=== PATIENT | female | born 1960 | race Caucasian/White ===

== ENCOUNTER 2018-04-04 08:53 | Emergency (ER) | payer BC ==
[~2018-04-04] VITALS: Ht 162.6 cm; Wt 79.5 kg
[2018-04-04 09:12] VITALS: Ht 162.6 cm; Wt 79.5 kg
[2018-04-04] MEDS ORDERED: ZOCOR40 MG PO (09:15)
[2018-04-04] MEDS ORDERED: LASIX20 MG PO (09:16)
[2018-04-04] MEDS ORDERED: LEVOXYL50 MCG PO (09:16)
[2018-04-04 10:41] LABS: BASOPHILS 0.3 % (0-2); EOSINOPHILS 0.7 % (0-7); HEMATOCRIT 40.6 % (36.0-48.0); HEMOGLOBIN 13.6 g/dL (12-16); IMMATURE GRANULOCYTES 0.3 % (0-5); LYMPHOCYTES 15.3 % (15-50); MCH 33.3 pg (26.0-34.0); MCHC 33.5 g/dL (31.0-37.0); MCV 99.5 fL (80.0-100.0); MEAN PLATELET VOLUME 9.4 fL (7.4-10.4); MONOCYTES 4.8 % (2-11); NEUTROPHILS 78.6 % (40-80); RBC 4.08 10x6/uL (4.00-5.40); RDW 13.6 % (11.5-14.5); WBC 14.9 10x3/uL (4.8-10.8)
[2018-04-04 10:55] LABS: ALBUMIN 3.4 g/dL (3.4-5.0); ALKALINE PHOSPHATASE 66 U/L (46-116); ALT (SGPT) 12 U/L (10-68); CALC OSMOLALITY 278 mosm/kg (275-300); CALCIUM 8.7 mg/dL (8.5-10.1); CARBON DIOXIDE 31.7 mmol/L (21.0-32.0); CHLORIDE - SERUM 104 mmol/L (98-107); CREATININE - SERUM 0.8 mg/dL (0.6-1.3); GLUCOSE 105 mg/dL (74-106); PLATELET COUNT 239 10x3/uL (130-400); POTASSIUM - SERUM 3.2 mmol/L (3.5-5.1); SODIUM 141 mmol/L (136-145); UREA NITROGEN 6 mg/dL (7-18); eGFR NON AFRICAN AMERICAN 78 mL/min (90-120)
[2018-04-04 10:59] LABS: TROPONIN-I < 0.017 ng/mL (0.000-0.060)
[2018-04-04] MEDS ORDERED: AMOXICILLIN875 MG PO (11:27)
[2018-04-04] MEDS ORDERED: ZITHROMAX500 MG PO (11:27)
[2018-04-04 11:59] LABS: UDS - AMPHET NEGATIVE QUAL (NEGATIVE); UDS - BARB NEGATIVE QUAL (NEGATIVE); UDS - BENZO NEGATIVE QUAL (NEGATIVE); UDS - COCAINE NEGATIVE QUAL (NEGATIVE); UDS - OPIATE POSITIVE QUAL (NEGATIVE); UDS - PCP NEGATIVE QUAL (NEGATIVE); UDS - THC NEGATIVE QUAL (NEGATIVE)
[2018-04-04 12:06] VITALS: BP 118/72
[2018-04-04 12:21] LABS: APPEARANCE HAZY (CLEAR); BACTERIA MODERATE /hpf (NONE SEEN); BILIRUBIN NEGATIVE (NEGATIVE); COLOR YELLOW (YELLOW); GLUCOSE NEGATIVE (NEGATIVE); KETONE SMALL mg/dL (NEGATIVE); MUCUS <1+ /lpf (NONE SEEN); NITRITE NEGATIVE (NEGATIVE); PROTEIN NEGATIVE (NEGATIVE); SPECIFIC GRAVITY 1.005 (1.005-1.020); UROBILINOGEN NORMAL (NORMAL); WHITE CELLS - URINE 0-5 /hpf (0-5)
== END 2018-04-04 12:07 | disposition home or self-care (01) ==
LOC: D.ER 08:53
PROVIDERS: Family Medicine
DX: J18.9 Pneumonia, unspecified organism (principal); J44.9 Chronic obstructive pulmonary disease, unspecified

== ENCOUNTER 2018-04-11 07:44 | Emergency (ER) | payer BC ==
[~2018-04-11] VITALS: Ht 162.6 cm; Wt 80.9 kg
[~2018-04-11 07:44] MED LIST: AMOXICILLIN875 MG PO; LASIX20 MG PO; LEVOXYL50 MCG PO; ZITHROMAX500 MG PO; ZOCOR40 MG PO
[2018-04-11 07:48] VITALS: Ht 162.6 cm; Wt 80.9 kg
[2018-04-11] MEDS ORDERED: MECLIZINE HCL25 MG PO (07:51)
[2018-04-11 08:09] LABS: APPEARANCE CLEAR (CLEAR); BILIRUBIN NEGATIVE (NEGATIVE); COLOR STRAW (YELLOW); GLUCOSE NEGATIVE (NEGATIVE); KETONE NEGATIVE (NEGATIVE); NITRITE NEGATIVE (NEGATIVE); PROTEIN NEGATIVE (NEGATIVE); SPECIFIC GRAVITY 1.005 (1.005-1.020); UROBILINOGEN NORMAL (NORMAL)
[2018-04-11] MEDS ORDERED: NORCO 7.5/325 T1 TA1 PO (10:41)
[2018-04-11] MEDS ORDERED: CYCLOBENZAPRINE10 MG PO (10:41)
[2018-04-11 10:53] VITALS: BP 123/85
== END 2018-04-11 10:56 | disposition home or self-care (01) ==
LOC: D.ER 07:44
PROVIDERS: Family Medicine
DX: M54.31 Sciatica, right side (principal)

== ENCOUNTER 2018-12-04 22:16 | Inpatient (IN) | payer BC ==
[~2018-12-04] VITALS: Ht 162.6 cm; Wt 77.1 kg
[2018-12-04 22:16] VITALS: BP 153/91
[~2018-12-04 22:16] MED LIST changes: +CYCLOBENZAPRINE10 MG PO; +MECLIZINE HCL25 MG PO; +NORCO 7.5/325 T1 TA1 PO
[2018-12-04 23:08] LABS: BASOPHILS 0.5 % (0-2); EOSINOPHILS 4.9 % (0-7); HEMATOCRIT 43.7 % (36.0-48.0); HEMOGLOBIN 14.8 g/dL (12-16); IMMATURE GRANULOCYTES 0.3 % (0-5); LYMPHOCYTES 28.3 % (15-50); MCH 32.4 pg (26.0-34.0); MCHC 33.9 g/dL (31.0-37.0); MCV 95.6 fL (80.0-100.0); MEAN PLATELET VOLUME 9.3 fL (7.4-10.4); MONOCYTES 4.8 % (2-11); NEUTROPHILS 61.2 % (40-80); PLATELET COUNT 283 10x3/uL (130-400); RBC 4.57 10x6/uL (4.00-5.40); RDW 13.4 % (11.5-14.5); WBC 14.9 10x3/uL (4.8-10.8)
[2018-12-04 23:15] LABS: APTT 28.9 SECONDS (22.8-39.4); INR 0.94 (0.85-1.17); PROTIME 12.1 SECONDS (11.6-15.0)
[2018-12-04 23:20] LABS: ALKALINE PHOSPHATASE 71 U/L (46-116); ALT (SGPT) 31 U/L (10-68); BILIRUBIN - TOTAL 0.51 mg/dL (0.2-1.3); CALC OSMOLALITY 292 mosm/kg (275-300); CALCIUM 8.8 mg/dL (8.5-10.1); CARBON DIOXIDE 28.2 mmol/L (21.0-32.0); CHLORIDE - SERUM 105 mmol/L (98-107); CREATININE - SERUM 0.7 mg/dL (0.6-1.3); GLUCOSE 114 mg/dL (74-106); POTASSIUM - SERUM 3.8 mmol/L (3.5-5.1); PROTEIN - SERUM 7.4 g/dL (6.4-8.2); SODIUM 146 mmol/L (136-145); UREA NITROGEN 14 mg/dL (7-18); eGFR NON AFRICAN AMERICAN > 90 mL/min (90-120)
[2018-12-04 23:31] LABS: CKMB 0.8 U/L (0.0-3.6); CREATINE KINASE 67 UL (21-215); PRO BNP 62 pg/mL (0-125); TROPONIN-I < 0.017 ng/mL (0.000-0.060)
[2018-12-04 23:41] VITALS: BP 144/92
[2018-12-05] VITALS (7 sets, daily range): BP systolic 95–125; BP diastolic 39–68; Ht 162.6 cm; Wt 77.1 kg
--- NOTE | 2018-12-05 00:28 | NUR ---
ARRIVED ON FLOOR VIA WC. SELF AMBULATED TO BED. ORIENTED TO ROOM AND CALL LIGHT. IV TO LEFT HAND INFUSING ABX. ASSESSMENT AND HISTORY PER FLOW SHEET. O2 AT 3L VIA NC.
[2018-12-05] MEDS ORDERED: CLARITIN 10 MG10 MG PO (00:38)
--- NOTE | 2018-12-05 06:53 | NUR ---
I have reviewed this patient and I concur with the Shift Assessment completed by the Licensed Practical Nurse today this shift.
--- NOTE | 2018-12-05 08:09 | NUR ---
AWAKE AND ALERT. NO C/O AT THIS TIME. LUNGS HAVE ADVANTAGOUS SOUNDS THROUGHOUT BUT INSPIRATORY WHEEZES NOTED TO LEFT LOBES, OCCASSIONALLY PRODUCTIVE COUGH NOTED WITH REPORTED YELLOW SPUTUM. SKIN IS INTACT WITHOUT REDNESS. SL TO LEFT FOREARM IS PATENT WITHOUT REDNESS AT INSERTION SITE.
--- NOTE | 2018-12-05 09:00 | NUR ---
ATE MOST OF BREAKFAST. PATIENT IS UP AD HAILEY. DENIES NEEDS.
--- NOTE | 2018-12-05 09:57 | NUR ---
PATIENT IS UP AD HAILEY AND REFUSED SCD'S.
[2018-12-05 10:10] LABS: BASOPHILS 0.1 % (0-2); EOSINOPHILS 0.1 % (0-7); HEMATOCRIT 42.8 % (36.0-48.0); HEMOGLOBIN 14.4 g/dL (12-16); IMMATURE GRANULOCYTES 0.4 % (0-5); LYMPHOCYTES 9.6 % (15-50); MCH 32.3 pg (26.0-34.0); MCHC 33.6 g/dL (31.0-37.0); MEAN PLATELET VOLUME 9.9 fL (7.4-10.4); MONOCYTES 0.5 % (2-11); NEUTROPHILS 89.3 % (40-80); PLATELET COUNT 288 10x3/uL (130-400); RBC 4.46 10x6/uL (4.00-5.40); RDW 13.6 % (11.5-14.5)
[2018-12-05 10:21] LABS: WBC 7.8 10x3/uL (4.8-10.8)
[2018-12-05 10:28] LABS: ANION GAP 18.2 mmol/L (8-16); CALCIUM 9.1 mg/dL (8.5-10.1); CARBON DIOXIDE 23.7 mmol/L (21.0-32.0); POTASSIUM - SERUM 3.9 mmol/L (3.5-5.1)
--- NOTE | 2018-12-05 13:00 | NUR ---
ATE MOST OF LUNCH. DENIES NEEDS. VISITOR AT BEDSIDE.
--- NOTE | 2018-12-05 18:44 | NUR ---
SITTING UP IN BED EATING SUPPER. VISITOR AT BEDSIDE. DENIES NEEDS. NO CHANGES NOTED.
--- NOTE | 2018-12-06 02:00 | NUR ---
1930) REC'D. IN BED EYES CLOSED RESP. DEEP AND EVEN LYING ON RIGHT SIDE NO OBSERVANCE OF ANY RESP. DIFFICULTY AT PRESENT TIME. WILL CONTINUE TO MONITO FOR ANY CHGES. AND FOLLOW CURRENT PLAN OF CARE
--- NOTE | 2018-12-06 04:15 | NUR ---
I have reviewed this patient and I concur with the Shift Assessment completed by the Licensed Practical Nurse today this shift.
[2018-12-06 04:42] LABS: BASOPHILS 0 % (0-2); EOSINOPHILS 0 % (0-7); HEMATOCRIT 37.9 % (36.0-48.0); HEMOGLOBIN 12.5 g/dL (12-16); IMMATURE GRANULOCYTES 0.3 % (0-5); LYMPHOCYTES 8.8 % (15-50); MCH 31.6 pg (26.0-34.0); MCV 95.7 fL (80.0-100.0); MEAN PLATELET VOLUME 9.6 fL (7.4-10.4); MONOCYTES 2.3 % (2-11); NEUTROPHILS 88.6 % (40-80); PLATELET COUNT 265 10x3/uL (130-400); RBC 3.96 10x6/uL (4.00-5.40); RDW 13.7 % (11.5-14.5)
[2018-12-06 04:53] LABS: CALC OSMOLALITY 285 mosm/kg (275-300); CALCIUM 8.6 mg/dL (8.5-10.1); CARBON DIOXIDE 24.1 mmol/L (21.0-32.0); CHLORIDE - SERUM 107 mmol/L (98-107); CREATININE - SERUM 0.8 mg/dL (0.6-1.3); MAGNESIUM - SERUM 1.9 mg/dL (1.8-2.4); PHOSPHOROUS 3.3 mg/dL (2.5-4.9); POTASSIUM - SERUM 4.3 mmol/L (3.5-5.1); SODIUM 141 mmol/L (136-145); UREA NITROGEN 16 mg/dL (7-18); eGFR NON AFRICAN AMERICAN 78 mL/min (90-120)
[2018-12-06 04:57] LABS: GLUCOSE 166 mg/dL (74-106)
[2018-12-06 05:51] VITALS: BP 101/44
--- NOTE | 2018-12-06 08:06 | NUR ---
AWAKE AND ALERT. ORIENTED X3. NO C/O AT THIS TIME. LUNGS ARE MOSTLY CLEAR WITH GOOD AIRFLOW TODAY FAINT CRACKLES NOTED TO LOWER LOBES, OCCASSIONAL NON PRODUCTIVE COUGH NOTED. SKIN IS INTACT WITHOUT REDNESS. SL TO LEFT HAND IS PATETN WTIHOUT REDNESS AT INSERTION SITE. DENIES NEEDS.
--- NOTE | 2018-12-06 09:30 | NUR ---
ATE MOST OF BREAKFAST. UP IN ROOM CHANGING LINENS ON BED. STATED SHE NEEDED SOMETHING TO DO. DENIES NEEDS.
[2018-12-06 09:46] VITALS: BP 111/60
--- NOTE | 2018-12-06 12:30 | NUR ---
LUNCH SERVED IN ROOM.
--- NOTE | 2018-12-06 13:40 | NUR ---
RETURNED FROM SURGERY. A/O X3. DRESSING TO LEFT ANKLE DRY AND INTACT. FAMILY IN ROOM.
--- NOTE | 2018-12-06 14:13 | NUR ---
ECHO IN PROGRESS AT THIS TIME.
[2018-12-06 15:10] VITALS: BP 113/57
--- NOTE | 2018-12-06 16:36 | MORECARE ---
CASE MANAGEMENT DISCHARGE SUMMARY PATIENT: HANY BRIAN UNIT: [id number] ADM DATE: 12/04/18 AGE: 58 : 60 SEX: F ROOM/BED: D.2208 AUTHOR: LEA MCMULLEN PHYSICIAN: REFERRING PHYSICIAN: VIC SOTO MD DATE OF SERVICE: 12/06/18 Discharge Plan Patient Name: HANY BRIAN [facility] [facility] 1960 Planned Disposition: Home Anticipated Discharge Date: Discharge Date: Expected LOS: Initial Reviewer: [email or web address] Initial Review Date: 12/05/2018 Generated: 12/06/18 5:36 pm DCPIA - Discharge Planning Initial Assessment Updated by [email or web address]: Alison Mcclure on 12/06/18 4:35 pm * Is the patient Alert and Oriented? Yes * How many steps to enter\exit or inside your home? * PCP KAUFMAN * Pharmacy [facility] * Preadmission Environment Home with Family * ADLs Independent * Equipment Nebulizer * List name and contact numbers for known caregivers / representatives who currently or will assist patient after discharge: TONYA (SISTER) AMEYA BARRERA (BOYFRIEND) [phone] * Verbal permission to speak to the caregivers and representatives has been obtained from the patient. N/A * Community resources currently utilized None * Additional services required to return to the preadmission environment? Yes * Can the patient safely return to the preadmission environment? Yes * Has this patient been hospitalized within the prior 30 days at any hospital? No Patient Name: HANY BRIAN Page [id number] at 1636 All edits/amendments must be made on the electronic document DICTATION DATE: 12/06/18 1636 TAGMAN: LEO 12/06/18 1636 RPT#: [id number] DC DATE: STATUS: ADM IN [facility] [address] [place] [address] END OF REPORT
--- NOTE | 2018-12-06 16:44 | MORECARE ---
CASE MANAGEMENT DISCHARGE SUMMARY PATIENT: HANY BRIAN UNIT: [id number] ADM DATE: 12/04/18 AGE: 58 : 60 SEX: F ROOM/BED: D.2209 AUTHOR: BENEDICT,DOC PHYSICIAN: REFERRING PHYSICIAN: VIC SOTO MD DATE OF SERVICE: 12/06/18 Discharge Plan Patient Name: HANY BRIAN Facility: [facility]:[place] : 1960 Planned Disposition: Home Anticipated Discharge Date: Discharge Date: Expected LOS: Initial Reviewer: [email or web address] Initial Review Date: 12/05/2018 Generated: 12/06/18 5:44 pm Comments DCP- Discharge Planning Updated by [email or web address]: Alison Mcclure on 12/06/18 3:[address] Patient Name: HANY BRIAN Admission Status: ER Accout number: [id number] Admission Date: 12-04-2018 : 1960 Admission Diagnosis:SHORTNESS OF BREATH Attending: VIC SOTO Current LOS: 2 Anticipated DC Date: Planned Disposition: Home Primary Insurance: [employer] OUT OF STATE Discharge Planning Comments: CM met with patient to complete initial dc planning assessment. CM educated patient on the CM role and verbal consent given by patient to complete assessment. Patient lives at home with her mother and sister where she states she is independent with her care. At discharge patient plans to return home and feels this is a safe discharge. She is currently using her mothers nebulizer machine that is brand new from [facility], but she needs a new hose and mouth piece. I will try to get a jay for her. CM discussed availability of home health, rehab services, and medical equipment. Patient denied known discharge needs at this time. At discharge her sister, Gisella will be the one to drive her home. CM will continue to follow and will assist as needed with dc plans/needs. Ehs Teacher: Alison Mcclure DCPIA - Discharge Planning Initial Assessment Updated by [email or web address]: Alison Mcclure on 12/06/18 4:35 pm * Is the patient Alert and Oriented? Yes * How many steps to enter\exit or inside your home? * PCP KAUFMAN * Pharmacy [facility] [address] * Preadmission Environment Home with Family * ADLs Independent * Equipment Nebulizer * List name and contact numbers for known caregivers / representatives who currently or will assist patient after discharge: GISELLA (SISTER) AMEYA BARRERA (BOYFRIEND) [phone] * Verbal permission to speak to the caregivers and representatives has been obtained from the patient. N/A * Community resources currently utilized None * Additional services required to return to the preadmission environment? Yes * Can the patient safely return to the preadmission environment? Yes * Has this patient been hospitalized within the prior 30 days at any hospital? No Last DP export: 12/06/18 3:36 p Patient Name: HANY BRIAN Page [phone] at 1644 All edits/amendments must be made on the electronic document DICTATION DATE: 12/06/181643 DIRECTOR OF HOME CARE HOSPICE: LEO 12/06/181643 RPT#: [id number] DC DATE: STATUS: ADM IN [facility] [address] [place] [address] END OF REPORT
[2018-12-06 17:24] VITALS: BP 117/64
[2018-12-06 21:37] VITALS: BP 90/48
[2018-12-07 01:33] VITALS: BP 101/54
--- NOTE | 2018-12-07 02:24 | NUR ---
REC'D. CHGE OF SHIFT IN BED EYES CLOSED REP. DEEP AND EVEN.WILL CONTINUE TO MONITOR FOR ANY CHGES. IN RESP. STATUS AND FOLLOW CURRENT PLAN OF CARE.
[2018-12-07 04:17] LABS: BASOPHILS 0 % (0-2); EOSINOPHILS 0.1 % (0-7); HEMATOCRIT 36.6 % (36.0-48.0); HEMOGLOBIN 11.9 g/dL (12-16); IMMATURE GRANULOCYTES 0.7 % (0-5); LYMPHOCYTES 8.4 % (15-50); MCH 31.4 pg (26.0-34.0); MCHC 32.5 g/dL (31.0-37.0); MCV 96.6 fL (80.0-100.0); MEAN PLATELET VOLUME 9.7 fL (7.4-10.4); MONOCYTES 2.8 % (2-11); PLATELET COUNT 243 10x3/uL (130-400); RBC 3.79 10x6/uL (4.00-5.40); RDW 14.4 % (11.5-14.5); WBC 18.1 10x3/uL (4.8-10.8)
[2018-12-07 04:26] LABS: CALC OSMOLALITY 284 mosm/kg (275-300); CALCIUM 8.3 mg/dL (8.5-10.1); CARBON DIOXIDE 24.1 mmol/L (21.0-32.0); CHLORIDE - SERUM 106 mmol/L (98-107); CREATININE - SERUM 0.7 mg/dL (0.6-1.3); GLUCOSE 150 mg/dL (74-106); POTASSIUM - SERUM 4.3 mmol/L (3.5-5.1); SODIUM 141 mmol/L (136-145); UREA NITROGEN 15 mg/dL (7-18); eGFR NON AFRICAN AMERICAN > 90 mL/min (90-120)
[2018-12-07 04:48] VITALS: BP 90/54
--- NOTE | 2018-12-07 04:48 | NUR ---
I have reviewed this patient and I concur with the Shift Assessment completed by the Licensed Practical Nurse today this shift.
--- NOTE | 2018-12-07 07:20 | NUR ---
PATIENT RESTING COMFORTABLY. NO COMPLAINTS. STATED, "I AM GOING TO GET A STARBUCK'S COFFEE." ALL NEEDS MET AT THIS TIME.
[2018-12-07 08:45] VITALS: BP 98/47
[2018-12-07] MEDS ORDERED: ZITHROMAX500 MG PO (10:18)
[2018-12-07] MEDS ORDERED: PREDNISONE10 MG PO (10:22)
[2018-12-07] MEDS ORDERED: ALBUTEROL2.5 MG/3 M INH (10:22)
[2018-12-07] MEDS ORDERED: DULERA 200 MCG8.8 GM INH (10:24)
--- NOTE | 2018-12-07 10:48 | NUR ---
PT REFUSED TX WAITING FOR RIDE HOME
--- NOTE | 2018-12-07 11:08 | NUR ---
PIV REMOVED FROM LEFT HAND, TIP INTACT.
--- NOTE | 2018-12-07 11:11 | MORECARE ---
CASE MANAGEMENT DISCHARGE SUMMARY PATIENT: HANY BRIAN UNIT: [id number] ADM DATE: 12/04/18 AGE: 58 : 60 SEX: F ROOM/BED: D.2204 AUTHOR: BENEDICTDOC PHYSICIAN: REFERRING PHYSICIAN: VIC SOTO MD DATE OF SERVICE: 12/07/18 Discharge Plan Patient Name: HANY BRIAN Facility: [facility]:[place] : 1960 Planned Disposition: Home Anticipated Discharge Date: Discharge Date: Expected LOS: Initial Reviewer: [email or web address] Initial Review Date: 12/05/2018 Generated: 12/07/18 12:11 pm Comments DCP- Discharge Planning Updated by [email or web address]: Alison Mcclure on 12/07/18 10:[address] [facility] BROUGHT UP X2 NEW TUBING AND MOUTH PIECE FOR PATIENT. NO OTHER NEEDS, PATIENT WILL BE DISCHARGING HOME TODAY DCP- Discharge Planning Updated by [email or web address]: Alison Mcclure on 12/06/18 3:[address] Patient Name: HANY BRIAN Admission Status: ER Accout number: [id number] Admission Date: 12-04-2018 : 1960 Admission Diagnosis:SHORTNESS OF BREATH Attending: VIC SOTO Current LOS: 2 Anticipated DC Date: Planned Disposition: Home Primary Insurance: [employer] OUT OF STATE Discharge Planning Comments: CM met with patient to complete initial dc planning assessment. CM educated patient on the CM role and verbal consent given by patient to complete assessment. Patient lives at home with her mother and sister where she states she is independent with her care. At discharge patient plans to return home and feels this is a safe discharge. She is currently using her mothers nebulizer machine that is brand new from [facility], but she needs a new hose and mouth piece. I will try to get a jay for her. CM discussed availability of home health, rehab services, and medical equipment. Patient denied known discharge needs at this time. At discharge her sister, Gisella will be the one to drive her home. CM will continue to follow and will assist as needed with dc plans/needs. Residential Substance Abuse Counselor: Alison Mcclure DCPIA - Discharge Planning Initial Assessment Updated by [email or web address]: Alison Mcclure on 12/06/18 4:35 pm * Is the patient Alert and Oriented? Yes * How many steps to enter\exit or inside your home? * PCP MANDEEP * Pharmacy [facility] [address] * Preadmission Environment Home with Family * ADLs Independent * Equipment Nebulizer * List name and contact numbers for known caregivers / representatives who currently or will assist patient after discharge: GISELLA (SISTER) AMEYA BARRERA (BOYFRIEND) [phone] * Verbal permission to speak to the caregivers and representatives has been obtained from the patient. N/A * Community resources currently utilized None * Additional services required to return to the preadmission environment? Yes * Can the patient safely return to the preadmission environment? Yes * Has this patient been hospitalized within the prior 30 days at any hospital? No Last DP export: 12/06/18 3:44 p Patient Name: HANY BRIAN Page [phone] at 1111 All edits/amendments must be made on the electronic document DICTATION DATE: 12/07/18 1111 LEARNING AND DEVELOPMENT CONSULTANT: LEO 12/07/18 1111 RPT#: [id number] DC DATE: STATUS: ADM IN [facility] [address] [place] [address] END OF REPORT
--- NOTE | 2018-12-07 11:49 | NUR ---
DISCHARGE INSTRUCTIONS, MEDICATION, PFT AND FOLLOW-UP DISCUSSED WITH PATIENT. VERBALIZED UNDERSTANDING. ALL BELONGINGS SENT WITH PATIENT. PATIENT DISCHARGED HOME VIA WHEELCHAIR BY MYSELF.
--- NOTE | 2018-12-09 10:35 | MORECARE ---
CASE MANAGEMENT DISCHARGE SUMMARY PATIENT: HANY BRIAN UNIT: [id number] ADM DATE: 12/04/18 AGE: 58 : 60 SEX: F ROOM/BED: D.2200 AUTHOR: LEA MCMULLEN PHYSICIAN: REFERRING PHYSICIAN: VIC SOTO MD DATE OF SERVICE: 12/09/18 Discharge Plan Patient Name: HANY BRIAN Facility: [facility]:[place] : 1960 Planned Disposition: Home Anticipated Discharge Date: Discharge Date: 12/07/2018 Expected LOS: 0 Initial Reviewer: [email or web address] Initial Review Date: 12/05/2018 Generated: 12/09/18 11:34 am Comments DCP- Discharge Planning Updated by [email or web address]: Alison Mcclure on 12/07/18 10:[address] [facility] BROUGHT UP X2 NEW TUBING AND MOUTH PIECE FOR PATIENT. NO OTHER NEEDS, PATIENT WILL BE DISCHARGING HOME TODAY DCP- Discharge Planning Updated by [email or web address]: Alison Mcclure on 12/06/18 3:[address] Patient Name: HANY BRIAN Admission Status: ER Accout number: [id number] Admission Date: 12-04-2018 : 1960 Admission Diagnosis:SHORTNESS OF BREATH Attending: VIC SOTO Current LOS: 2 Anticipated DC Date: Planned Disposition: Home Primary Insurance: [employer] OUT OF STATE Discharge Planning Comments: CM met with patient to complete initial dc planning assessment. CM educated patient on the CM role and verbal consent given by patient to complete assessment. Patient lives at home with her mother and sister where she states she is independent with her care. At discharge patient plans to return home and feels this is a safe discharge. She is currently using her mothers nebulizer machine that is brand new from [facility], but she needs a new hose and mouth piece. I will try to get a jay for her. CM discussed availability of home health, rehab services, and medical equipment. Patient denied known discharge needs at this time. At discharge her sister, Gisella will be the one to drive her home. CM will continue to follow and will assist as needed with dc plans/needs. Rejector: Alison Mcclure DCPIA - Discharge Planning Initial Assessment Updated by [email or web address]: Alison Mcclure on 12/06/18 4:35 pm * Is the patient Alert and Oriented? Yes * How many steps to enter\exit or inside your home? * PCP KAUFMAN * Pharmacy [facility] [address] * Preadmission Environment Home with Family * ADLs Independent * Equipment Nebulizer * List name and contact numbers for known caregivers / representatives who currently or will assist patient after discharge: GISELLA (SISTER) AMEYA BARRERA (BOYFRIEND) [phone] * Verbal permission to speak to the caregivers and representatives has been obtained from the patient. N/A * Community resources currently utilized None * Additional services required to return to the preadmission environment? Yes * Can the patient safely return to the preadmission environment? Yes * Has this patient been hospitalized within the prior 30 days at any hospital? No Last DP export: 12/07/18 10:11 a Patient Name: HANY BRIAN Page [phone] at 1035 All edits/amendments must be made on the electronic document DICTATION DATE: 12/09/18 1034 WINDSHIELD INSTALLER: LEO 12/09/18 1034 RPT#: [id number] DC DATE:12/07/18 STATUS: DIS IN [facility] [address] [place] [address] END OF REPORT
[2018-12-12 22:06] LABS: IMMUNOGLOBULIN E 1543 IU/mL (6-495)
== END 2018-12-07 11:55 | disposition home or self-care (01) | DRG 202 ==
LOC: D.ER 22:16 → D.EDHOLD 23:41 → D.MS 23:41
PROVIDERS: Emergency Medicine; Internal Medicine Pulmonary Disease; ADMIT Internal Medicine Nephrology; ATTEND Internal Medicine Nephrology
DX: J45.998 Other asthma (principal); J80 Acute respiratory distress syndrome; J40 Bronchitis, not specified as acute or chronic

== ENCOUNTER → 2019-01-09 12:35 | Outpatient (CLI) | payer BC ==
[2018-12-05 12:11] VITALS: BMI 29.2
[~2019-01-09 12:35] MED LIST changes: +ALBUTEROL2.5 MG/3 M INH; +CLARITIN 10 MG10 MG PO; +DULERA 200 MCG8.8 GM INH; +PREDNISONE10 MG PO
== END | disposition home or self-care (01) ==
LOC: D.RT 12:35
PROVIDERS: ATTEND Internal Medicine Pulmonary Disease
DX: J44.9 Chronic obstructive pulmonary disease, unspecified (principal)

== ENCOUNTER 2019-02-06 17:47 | Emergency (ER) | payer BC ==
[~2019-02-06] VITALS: Ht 162.6 cm; Wt 43.6 kg
[2019-02-06 17:59] VITALS: Ht 162.6 cm; Wt 43.6 kg
[2019-02-06] MEDS ORDERED: CRESTOR20 MG PO (18:03)
[2019-02-06] MEDS ORDERED: OMEPRAZOLE20 M1 PO (18:04)
[2019-02-06] MEDS ORDERED: CARAFATE1 G PO (18:05)
[2019-02-06 19:19] LABS: BASOPHILS 0.6 % (0-2); EOSINOPHILS 4.8 % (0-7); HEMATOCRIT 41.1 % (36.0-48.0); HEMOGLOBIN 14.1 g/dL (12-16); IMMATURE GRANULOCYTES 0.3 % (0-5); MCH 32.3 pg (26.0-34.0); MCHC 34.3 g/dL (31.0-37.0); MCV 94.1 fL (80.0-100.0); MEAN PLATELET VOLUME 9.3 fL (7.4-10.4); MONOCYTES 4.6 % (2-11); NEUTROPHILS 43.7 % (40-80); PLATELET COUNT 275 10x3/uL (130-400); RBC 4.37 10x6/uL (4.00-5.40); RDW 13.1 % (11.5-14.5); WBC 9.7 10x3/uL (4.8-10.8)
[2019-02-06 19:34] LABS: ALKALINE PHOSPHATASE 64 U/L (46-116); ALT (SGPT) 24 U/L (10-68); BILIRUBIN - TOTAL 0.34 mg/dL (0.2-1.3); CALC OSMOLALITY 276 mosm/kg (275-300); CALCIUM 8.7 mg/dL (8.5-10.1); CARBON DIOXIDE 26.8 mmol/L (21.0-32.0); CHLORIDE - SERUM 102 mmol/L (98-107); CREATININE - SERUM 0.7 mg/dL (0.6-1.3); PROTEIN - SERUM 7.3 g/dL (6.4-8.2); SODIUM 139 mmol/L (136-145); UREA NITROGEN 11 mg/dL (7-18); eGFR NON AFRICAN AMERICAN > 90 mL/min (90-120)
[2019-02-06 19:36] LABS: GLUCOSE 90 mg/dL (74-106)
[2019-02-06 19:37] LABS: AMYLASE - SERUM 23 U/L (25-115); LIPASE 118 U/L (73-393)
[2019-02-06 19:43] LABS: TROPONIN-I < 0.017 ng/mL (0.000-0.060)
[2019-02-06 21:09] LABS: APPEARANCE CLEAR (CLEAR); BILIRUBIN NEGATIVE (NEGATIVE); COLOR YELLOW (YELLOW); GLUCOSE NEGATIVE (NEGATIVE); KETONE NEGATIVE (NEGATIVE); NITRITE NEGATIVE (NEGATIVE); PROTEIN NEGATIVE (NEGATIVE); UROBILINOGEN NORMAL (NORMAL)
[2019-02-07] MEDS ORDERED: OMEPRAZOLE40 MG PO (00:22)
[2019-02-07 00:45] VITALS: BP 144/80
== END 2019-02-07 00:43 | disposition home or self-care (01) ==
LOC: D.ER 17:47
PROVIDERS: Emergency Medicine
DX: R10.9 Unspecified abdominal pain (principal); K29.70 Gastritis, unspecified, without bleeding; E87.6 Hypokalemia

== ENCOUNTER 2019-07-03 09:19 | Day surgery (SDC) | payer BC ==
[~2019-07-03] VITALS: Ht 162.6 cm; Wt 78.2 kg
[~2019-07-03 09:19] MED LIST changes: +CARAFATE1 G PO; +CRESTOR20 MG PO; +OMEPRAZOLE20 M1 PO; +OMEPRAZOLE40 MG PO
[2019-07-03] MEDS ORDERED: SINGULAIR10 MG PO (10:06)
[2019-07-03 10:09] VITALS: Ht 162.6 cm; Wt 78.2 kg
[2019-07-03 10:09] LABS: CALC OSMOLALITY 281 mosm/kg (275-300); CALCIUM 8.9 mg/dL (8.5-10.1); CARBON DIOXIDE 30.4 mmol/L (21.0-32.0); CHLORIDE - SERUM 104 mmol/L (98-107); CREATININE - SERUM 0.7 mg/dL (0.6-1.3); GLUCOSE 119 mg/dL (74-106); POTASSIUM - SERUM 4.1 mmol/L (3.5-5.1); SODIUM 141 mmol/L (136-145); UREA NITROGEN 13 mg/dL (7-18); eGFR NON AFRICAN AMERICAN > 90 mL/min (90-120)
[2019-07-03 11:07] LABS: BASOPHILS 0.6 % (0-2); EOSINOPHILS 5.7 % (0-7); HEMATOCRIT 44.2 % (36.0-48.0); HEMOGLOBIN 14.3 g/dL (12-16); IMMATURE GRANULOCYTES 0.3 % (0-5); LYMPHOCYTES 47.7 % (15-50); MCH 31.7 pg (26.0-34.0); MCHC 32.4 g/dL (31.0-37.0); MEAN PLATELET VOLUME 9.2 fL (7.4-10.4); MONOCYTES 6.9 % (2-11); NEUTROPHILS 38.8 % (40-80); PLATELET COUNT 301 10x3/uL (130-400); RBC 4.51 10x6/uL (4.00-5.40); RDW 13.7 % (11.5-14.5); WBC 6.8 10x3/uL (4.8-10.8)
--- NOTE | 2019-07-03 12:02 | NUR ---
1155 INSTRUCTIONS GIVEN AND IV REMOVED. DR DIANA HERE TO TALK TO PT
--- NOTE | 2019-07-03 17:17 | OP ---
PATIENT NAME: HANY BRIAN MEDICAL RECORD: [id number] :60 LOCATION:[facility] ADMISSION DATE: SURGEON: DONALD DIANA DO DATE OF OPERATION: 07/03/2019 PROCEDURE: EGD with biopsies. INDICATIONS FOR PROCEDURE: Epigastric abdominal tenderness and right upper quadrant abdominal tenderness. SCOPE: yourdelivery video gastroscope. MEDICATIONS: Propofol 240 mg IV per anesthesia. ESTIMATED BLOOD LOSS: Minimal. COMPLICATIONS: None. FINDINGS: Informed consent was given. The patient was made comfortable with the above medication. After reaching an adequate level of sedation by slow IV push, the patient was placed on her left side. The endoscope was advanced under direct visualization through the mouth to the second portion of the duodenum with ease. The entire esophagus appeared normal. Random cold forceps biopsies were taken in the midesophagus to submit for histopathology and to rule out the presence of eosinophils. At the GE junction, there was evidence of LA class A reflux-induced esophagitis. Two cold forceps biopsies were taken at the squamocolumnar junction to submit for histopathology. The endoscope was advanced beyond the pylorus into the stomach and retroflexed to view the cardia and fundus. The patient does have a very small sliding hiatal hernia. The fundus appeared normal. As the endoscope was advanced throughout the body of the stomach as well as the antrum and prepyloric region, there was some congestion and erythema consistent with gastritis. Multiple cold forceps biopsies were taken from the antrum and incisura to submit for histopathology and to rule out the presence of H. pylori. The endoscope was advanced beyond the pylorus into the duodenum, which appeared normal to the second portion. Random cold forceps biopsies were taken from the duodenum to submit for histopathology. The endoscope was withdrawn from the patient. The patient tolerated the procedure well and there were no complications. IMPRESSION: 1. LA class A reflux-induced esophagitis. 2. Small sliding hiatal hernia. 3. Gastritis. PLAN AND RECOMMENDATIONS: 1. Discharge home when recovery parameters are met. 2. Follow up biopsy specimen results. 3. GERD diet and reflux precautions. 4. Low FODMAP diet. 5. We will arrange for a PIPIDA scan regarding the patient's abdominal pain that worsens with eating. 6. Increase omeprazole back to 40 mg daily while awaiting biopsy results. 7. Follow up in GI clinic in 3-4 weeks. TRANSINT:[id number] Voice Confirmation ID: [id number] DOCUMENT ID: [id number] OPERATIVE REPORT [id number] HANY BRIAN,DONALD Piña DO at 1717 CC: [id number] DICTATION DATE: 07/03/19 1136 LETTER CARRIER: 07/03/19 1159 [facility] [place] 07/03/19 [place] [id number] [place] [id number]
== END 2019-07-03 12:08 | disposition home or self-care (01) ==
LOC: D.OPS 09:19
PROVIDERS: Anesthesiology; ATTEND Internal Medicine Gastroenterology
DX: R10.826 Epigastric rebound abdominal tenderness (principal); R10.821 Right upper quadrant rebound abdominal tenderness

== ENCOUNTER → 2019-07-26 07:35 | Outpatient (CLI) | payer BC ==
[2019-07-03 10:09] VITALS: BMI 29.6
[~2019-07-26 07:35] MED LIST changes: +SINGULAIR10 MG PO
== END | disposition home or self-care (01) ==
LOC: D.NM 07:35
PROVIDERS: ATTEND Internal Medicine Gastroenterology
DX: R10.13 Epigastric pain (principal)

== ENCOUNTER 2019-08-07 08:32 | Day surgery (SDC) | payer BC ==
[~2019-08-07] VITALS: Ht 162.6 cm; Wt 77.3 kg
[2019-08-07 09:04] LABS: BASOPHILS 0.7 % (0-2); EOSINOPHILS 4.5 % (0-7); HEMATOCRIT 43.9 % (36.0-48.0); HEMOGLOBIN 14.6 g/dL (12-16); IMMATURE GRANULOCYTES 0.3 % (0-5); LYMPHOCYTES 35.6 % (15-50); MCHC 33.3 g/dL (31.0-37.0); MCV 96.3 fL (80.0-100.0); NEUTROPHILS 52.9 % (40-80); PLATELET COUNT 288 10x3/uL (130-400); RBC 4.56 10x6/uL (4.00-5.40); RDW 13.3 % (11.5-14.5); WBC 7.5 10x3/uL (4.8-10.8)
[2019-08-07 09:17] LABS: CALC OSMOLALITY 279 mosm/kg (275-300); CALCIUM 9.1 mg/dL (8.5-10.1); CARBON DIOXIDE 28.2 mmol/L (21.0-32.0); CHLORIDE - SERUM 103 mmol/L (98-107); CREATININE - SERUM 0.7 mg/dL (0.6-1.3); GLUCOSE 104 mg/dL (74-106); POTASSIUM - SERUM 3.5 mmol/L (3.5-5.1); SODIUM 141 mmol/L (136-145); UREA NITROGEN 11 mg/dL (7-18); eGFR NON AFRICAN AMERICAN > 90 mL/min (90-120)
[2019-08-07 09:27] VITALS: BP 135/74; Ht 162.6 cm; Wt 77.3 kg
--- NOTE | 2019-08-07 11:04 | NUR ---
1044 PT UP TO BR WITH MINIMAL ASSISTANCE TO VOID. PT VOIDED AND PASSED FLATUS. 1051 IV DC'D. CATHETER TIP INTACT. PRESSURE HELD UNTIL BLEEDING STOPPED. BANDAID APPLIED.
--- NOTE | 2019-08-07 16:06 | OP ---
PATIENT NAME: HANY BRIAN MEDICAL RECORD: [id number] :60 LOCATION:[facility] ADMISSION DATE: SURGEON: DONALD DIANA DO DATE OF OPERATION: 08/07/2019 PROCEDURE: Colonoscopy with polypectomy. INDICATIONS FOR PROCEDURE: Screening for colorectal cancer. The patient's last colonoscopy was performed 06/29/2011. SCOPE: Olympus video pediatric colonoscope. MEDICATIONS: Propofol 380 mg IV per anesthesia. WITHDRAWAL TIME: 20 minutes. ESTIMATED BLOOD LOSS: Minimal. COMPLICATIONS: None. FINDINGS: Informed consent was given. The patient was made comfortable with the above medication. After reaching an adequate level of sedation by slow IV push, the patient was placed on her left side. A digital rectal examination was performed and was normal. The endoscope was then advanced under direct visualization through the rectum to the cecum and terminal ileum. The endoscope was slowly withdrawn and the mucosa was carefully examined. The prep quality was good. There were 2 polyps visualized on today's examination. The first was in the cecum. It was a benign appearing mixed flat and sessile polyp. It measured approximately 5 mm in diameter. It was removed using hot forceps. In the ascending colon, there was another polyp, which was benign appearing and sessile and measured approximately 2 mm in size. It was removed using hot forceps. There was evidence of extensive diverticulosis involving the descending and sigmoid colon. There were a few scattered diverticula in the ascending colon as well. Retroflexion was performed in the rectum with visualization of a normal appearing rectal wall. The endoscope was withdrawn from the patient. The patient tolerated the procedure well and there were no complications. IMPRESSION: 1. Two polyps as described above, removed using hot forceps. 2. Severe diverticulosis of the descending and sigmoid colon with a few scattered diverticula in the ascending colon. PLAN AND RECOMMENDATIONS: 1. Discharge home when recovery parameters are met. 2. Follow up biopsy specimen results. 3. High fiber diet. 4. Continue current medications. 5. Recall colonoscopy in 5 years. TRANSINT:[id number] Voice Confirmation ID: [id number] DOCUMENT ID: [id number] OPERATIVE REPORT [id number] HANY BRIAN DONALD DIANA DO at 1601 CC: [id number] DICTATION DATE: 08/07/19 103 PATIENT SUPPORT ASSOCIATE: 08/07/19 1046 [facility] 08/07/19 [facility] [address] [place] [address]
== END 2019-08-07 11:09 | disposition home or self-care (01) ==
LOC: D.OPS 08:32
PROVIDERS: Anesthesiology; ATTEND Internal Medicine Gastroenterology
DX: K63.5 Polyp of colon (principal); Z12.11 Encounter for screening for malignant neoplasm of colon; K57.90 Diverticulosis of intestine, part unspecified, without perforation or abscess without bleeding

== ENCOUNTER → 2019-08-14 07:03 | Outpatient (CLI) | payer BC ==
[2019-08-07 09:27] VITALS: BMI 29.2
[2019-08-15 09:10] LABS: IMMUNOGLOBULIN A 233 mg/dL (87-352); IMMUNOGLOBULIN G 684 mg/dL (700-1600)
== END | disposition home or self-care (01) ==
LOC: D.LAB 07:03
PROVIDERS: ATTEND Internal Medicine Pulmonary Disease
DX: J42 Unspecified chronic bronchitis (principal)

== ENCOUNTER 2019-08-31 08:42 | Inpatient (IN) | payer BC ==
[~2019-08-31] VITALS: Ht 162.6 cm; Wt 80.5 kg
[2019-08-31 11:42] VITALS: BP 108/66; BMI 30.4
--- NOTE | 2019-08-31 12:00 | NUR ---
PT ARRIVED TO ROOM. RR EVEN AND NONLABORED. AUDIBLE WHEEZING HEARD WITHOUT STETHASCOPE. WILL CTM
[2019-08-31 12:38] VITALS: Ht 162.6 cm; Wt 80.5 kg
[2019-08-31 13:02] LABS: ALKALINE PHOSPHATASE 76 U/L (46-116); ALT (SGPT) 28 U/L (10-68); BILIRUBIN - TOTAL 0.57 mg/dL (0.2-1.3); CALC OSMOLALITY 280 mosm/kg (275-300); CARBON DIOXIDE 26.4 mmol/L (21.0-32.0); CHLORIDE - SERUM 104 mmol/L (98-107); CREATININE - SERUM 0.7 mg/dL (0.6-1.3); GLUCOSE 97 mg/dL (74-106); PHOSPHOROUS 4.3 mg/dL (2.5-4.9); POTASSIUM - SERUM 3.3 mmol/L (3.5-5.1); PROTEIN - SERUM 7.6 g/dL (6.4-8.2); SODIUM 140 mmol/L (136-145); UREA NITROGEN 17 mg/dL (7-18); eGFR NON AFRICAN AMERICAN > 90 mL/min (90-120)
--- NOTE | 2019-08-31 13:16 | NUR ---
PT HAS A RC PIV INFUSING NS @ 50. WILL CTM
[2019-08-31 13:40] LABS: BASOPHILS 0.6 % (0-2); EOSINOPHILS 11.9 % (0-7); HEMATOCRIT 41.8 % (36.0-48.0); HEMOGLOBIN 13.4 g/dL (12-16); IMMATURE GRANULOCYTES 0.7 % (0-5); LYMPHOCYTES 36.1 % (15-50); MCH 31.2 pg (26.0-34.0); MCHC 32.1 g/dL (31.0-37.0); MCV 97.2 fL (80.0-100.0); MEAN PLATELET VOLUME 9.1 fL (7.4-10.4); MONOCYTES 5.5 % (2-11); NEUTROPHILS 45.2 % (40-80); RDW 14.8 % (11.5-14.5); WBC 15.1 10x3/uL (4.8-10.8)
[2019-08-31 13:42] LABS: PLATELET COUNT 360 10x3/uL (130-400)
[2019-08-31 14:19] LABS: APPEARANCE CLEAR (CLEAR); BILIRUBIN NEGATIVE (NEGATIVE); COLOR YELLOW (YELLOW); GLUCOSE NEGATIVE (NEGATIVE); KETONE NEGATIVE (NEGATIVE); NITRITE NEGATIVE (NEGATIVE); PROTEIN NEGATIVE (NEGATIVE); UROBILINOGEN NORMAL (NORMAL)
[2019-08-31 20:08] VITALS: BP 106/59
--- NOTE | 2019-08-31 20:29 | NUR ---
ASSESSED AT THE BEGINNING OF THE SHIFT. PT IS ALERT AND ORIENTED, ABLE TO VERBALIZE NEEDS. SHE IS UP AD HAILEY TO THE BATHROOM AND HAS NO O2 ON AT THIS TIME. TV IS ON AND THERE IS A FOOTBALL GAME ON. NO NEEDS VOICED.
[2019-09-01] VITALS: BP 101/54
[2019-09-01 04:00] VITALS: BP 118/68
--- NOTE | 2019-09-01 07:17 | NUR ---
PT RESTING IN BED, DENIES NEEDS. IV NOT INFUSING AT THIS TIME. PT REQUESTED TO WAIT UNTIL AFTER BREAKFAST TO RESTART. WCTM.
[2019-09-01 08:00] VITALS: BP 115/76
[2019-09-01 10:01] LABS: HEMATOCRIT 37.1 % (36.0-48.0); HEMOGLOBIN 12.1 g/dL (12-16); MCH 31.1 pg (26.0-34.0); MCHC 32.6 g/dL (31.0-37.0); MCV 95.4 fL (80.0-100.0); MEAN PLATELET VOLUME 8.8 fL (7.4-10.4); PLATELET COUNT 307 10x3/uL (130-400); RBC 3.89 10x6/uL (4.00-5.40); RDW 14.7 % (11.5-14.5); WBC 13.8 10x3/uL (4.8-10.8)
[2019-09-01 10:05] LABS: ANION GAP 13.9 mmol/L (8-16); CALCIUM 8.8 mg/dL (8.5-10.1); CARBON DIOXIDE 24.6 mmol/L (21.0-32.0); POTASSIUM - SERUM 3.5 mmol/L (3.5-5.1)
[2019-09-01 10:06] LABS: CREATININE - SERUM 0.9 mg/dL (0.6-1.3)
[2019-09-01 10:26] LABS: BASOPHILS 0.1 % (0-2); EOSINOPHILS 0 % (0-7); IMMATURE GRANULOCYTES 1.2 % (0-5); LYMPHOCYTES 8.7 % (15-50); MONOCYTES 1.6 % (2-11); NEUTROPHILS 88.4 % (40-80)
[2019-09-01 20:05] VITALS: BP 98/47
[2019-09-02] VITALS: BP 101/50
--- NOTE | 2019-09-02 03:17 | NUR ---
ASSESSED AT THE BEGINNING OF THE SHIFT. PT IS ALERT AND ORIENTED, ABLE TO VERBALIZE NEEDS. MS BRIAN IS ABLE TO GET UP AD HAILEY AND WALK ABOUT ROOM AND HALLWAYS. SHE HAS REQUESTED TO NOT HAVE HER IV FLUIDS RESTARTED. AT BEDTIME SHE TOOK ALL HER MEDS AND REQUESTED COUGH SYRUP. SHE HAS BEEN RESTING QUIET IN BED AND NO NEEDS VOICED. O2 REMAINS OFF AND SATS ARE GOOD. BED IS LOW, RAILS UP X'S 2 WITH THE CALL LIGHT AT HAND.
[2019-09-02 04:00] VITALS: BP 138/59
[2019-09-02 05:52] LABS: BASOPHILS 0 % (0-2); EOSINOPHILS 0 % (0-7); HEMATOCRIT 37.7 % (36.0-48.0); HEMOGLOBIN 12.1 g/dL (12-16); IMMATURE GRANULOCYTES 0.8 % (0-5); LYMPHOCYTES 7.7 % (15-50); MCH 30.9 pg (26.0-34.0); MCHC 32.1 g/dL (31.0-37.0); MCV 96.2 fL (80.0-100.0); MONOCYTES 3.7 % (2-11); NEUTROPHILS 87.8 % (40-80); PLATELET COUNT 320 10x3/uL (130-400); RBC 3.92 10x6/uL (4.00-5.40); WBC 20.3 10x3/uL (4.8-10.8)
[2019-09-02 06:16] LABS: CALCIUM 8.8 mg/dL (8.5-10.1); CARBON DIOXIDE 24.9 mmol/L (21.0-32.0); CHLORIDE - SERUM 107 mmol/L (98-107); SODIUM 142 mmol/L (136-145); UREA NITROGEN 15 mg/dL (7-18)
[2019-09-02 06:17] LABS: CALC OSMOLALITY 285 mosm/kg (275-300); CREATININE - SERUM 0.6 mg/dL (0.6-1.3); GLUCOSE 143 mg/dL (74-106); eGFR NON AFRICAN AMERICAN > 90 mL/min (90-120)
[2019-09-02 07:56] VITALS: BP 131/77
[2019-09-02 11:44] VITALS: BP 135/58
--- NOTE | 2019-09-02 12:36 | NUR ---
PT IN BED WITH HOB ELEVATED. PT O2 SAT BETWEEN 90%-93% ON ROOM AIR. STATED TO PT I'LL GET HER SOME OXYGEN AND SHE STATES "NO I DON'T WANT IT." I VERBALIZED UNDERSTANDING AND STATED TO PT TO LET ME KNOW IF SHE CHANGES HER MIND. BED LOW. CL IN REACH. WILL CONTINUE TO MONITOR.
--- NOTE | 2019-09-02 19:06 | NUR ---
I have reviewed this patient and I concur with the Shift Assessment completed by the Licensed Practical Nurse today this shift.
[2019-09-02 19:20] VITALS: BP 117/68
--- NOTE | 2019-09-02 19:20 | NUR ---
PATIENT RESTING IN BED WITH NO S/S OF DISTRESS AND DENIES NEEDS AT THIS TIME. VSS. BED IN LOWEST POSITION AND CALL LIGHT WITHIN REACH. ENCOURAGED THE PATIENT TO CALL IF SHE HAS NEEDS. WILL CONTINUE TO MONITOR.
--- NOTE | 2019-09-02 20:00 | NUR ---
PATIENT RESTING IN BED WITH NO S/S OF DISTRESS. PATIENT REQUESTED COUGH MED WITH NIGHT MEDS. ADMINISTERED MEDS PER ORDERS. PATIENT DENIES OTHER NEEDS AT THIS TIME. BED IN LOWEST POSITION AND CALL LIGHT WITHIN REACH. ENCOURAGED THE PATIENT TO CALL IF THEY HAVE NEEDS. WILL CONTINUE TO MONITOR.
--- NOTE | 2019-09-02 23:01 | NUR ---
PATIENT RESTING IN BED AND DENIES NEEDS AT THIS TIME. NO S/S OF DISTRESS. BED IN LOWEST POSITION AND CALL LIGHT WITHIN REACH. ENCOURAGED THE PATIENT TO CALL IF SHE HAS NEEDS. WILL CONTINUE TO MONITOR.
[2019-09-02 23:42] VITALS: BP 115/62
--- NOTE | 2019-09-03 03:47 | NUR ---
PATIENT RESTING IN BED WITH EYES CLOSED AND NO S/S OF DISTRESS. WILL CONTINUE TO MONITOR.
[2019-09-03 04:39] VITALS: BP 124/72
[2019-09-03 05:33] LABS: BASOPHILS 0.1 % (0-2); EOSINOPHILS 0.1 % (0-7); HEMATOCRIT 35.3 % (36.0-48.0); HEMOGLOBIN 11.5 g/dL (12-16); IMMATURE GRANULOCYTES 1.1 % (0-5); LYMPHOCYTES 7.1 % (15-50); MCH 31.4 pg (26.0-34.0); MCHC 32.6 g/dL (31.0-37.0); MCV 96.4 fL (80.0-100.0); MEAN PLATELET VOLUME 9.1 fL (7.4-10.4); MONOCYTES 3.1 % (2-11); NEUTROPHILS 88.5 % (40-80); PLATELET COUNT 296 10x3/uL (130-400); RBC 3.66 10x6/uL (4.00-5.40); RDW 15.4 % (11.5-14.5); WBC 15.9 10x3/uL (4.8-10.8)
[2019-09-03 05:58] LABS: CALC OSMOLALITY 289 mosm/kg (275-300); CALCIUM 8.4 mg/dL (8.5-10.1); CARBON DIOXIDE 24.7 mmol/L (21.0-32.0); CHLORIDE - SERUM 109 mmol/L (98-107); CREATININE - SERUM 0.7 mg/dL (0.6-1.3); GLUCOSE 152 mg/dL (74-106); POTASSIUM - SERUM 3.5 mmol/L (3.5-5.1); SODIUM 143 mmol/L (136-145); UREA NITROGEN 18 mg/dL (7-18); eGFR NON AFRICAN AMERICAN > 90 mL/min (90-120)
[2019-09-03 07:21] VITALS: BP 117/69
--- NOTE | 2019-09-03 07:53 | NUR ---
PT SITTING UP IN BED. AXO. RR EVEN AND UNLABORED. DENIES NEEDS OR PAIN AT THIS TIME. ASSESSMENT COMPLETE. VSS AT THIS TIME. IV NOTED TO RIGHT AC, SL. BED IN LOWEST POSITION. CALL LIGHT WITHIN REACH. WILL CONTINUE TO MONITOR.
--- NOTE | 2019-09-03 11:04 | NUR ---
I have reviewed this patient and I concur with the Shift Assessment completed by the Licensed Practical Nurse today this shift.
--- NOTE | 2019-09-03 16:57 | NUR ---
iv to right ac leaking. d/c with catheter tip intact. resited 20g to left hand sl x2 attempts.
[2019-09-03 19:18] VITALS: BP 133/58
--- NOTE | 2019-09-03 19:18 | NUR ---
PATIENT RESTING IN BED WITH NO S/S OF DISTRESS. VSS. PATIENT REQUESTED COUGH MED WITH HER NIGHT MED[facility]. PATIENT DENIES OTHER NEEDS AT THIS TIME. BED IN LOWEST POSITION AND CALL LIGHT WITHIN REACH. ENCOURAGED THE PATIENT TO CALL IF SHE HAS NEEDS. WILL CONTINUE TO MONITOR.
--- NOTE | 2019-09-03 22:35 | NUR ---
ADMINISTERED MEDS PER ORDERS. PATIENT DENIES OTHER NEEDS AT THIS TIME. ENCOURAGED PATIENT TO CALL IF SHE HAS NEEDS.
[2019-09-03 23:20] VITALS: BP 110/62
[2019-09-04 03:18] VITALS: BP 149/76
[2019-09-04 06:13] LABS: BASOPHILS 0.1 % (0-2); EOSINOPHILS 0.1 % (0-7); HEMOGLOBIN 11.7 g/dL (12-16); IMMATURE GRANULOCYTES 1.7 % (0-5); LYMPHOCYTES 8.5 % (15-50); MCH 31.1 pg (26.0-34.0); MCHC 32.5 g/dL (31.0-37.0); MCV 95.7 fL (80.0-100.0); MEAN PLATELET VOLUME 9.3 fL (7.4-10.4); MONOCYTES 3.9 % (2-11); NEUTROPHILS 85.7 % (40-80); PLATELET COUNT 283 10x3/uL (130-400); RBC 3.76 10x6/uL (4.00-5.40); RDW 15.4 % (11.5-14.5); WBC 15.2 10x3/uL (4.8-10.8)
[2019-09-04 06:30] LABS: CALC OSMOLALITY 286 mosm/kg (275-300); CALCIUM 8.5 mg/dL (8.5-10.1); CARBON DIOXIDE 26.1 mmol/L (21.0-32.0); CHLORIDE - SERUM 108 mmol/L (98-107); CREATININE - SERUM 0.6 mg/dL (0.6-1.3); GLUCOSE 136 mg/dL (74-106); POTASSIUM - SERUM 3.8 mmol/L (3.5-5.1); SODIUM 142 mmol/L (136-145); UREA NITROGEN 19 mg/dL (7-18); eGFR NON AFRICAN AMERICAN > 90 mL/min (90-120)
[2019-09-04 06:54] VITALS: BP 137/76
--- NOTE | 2019-09-04 07:00 | NUR ---
PT RESTING ON SIDE OF BED, SHIFT ASSESSMENT PERFORMED. VSS AND WNL. PT ANSWERS ALL QUESTIONS. PT IS HOPEFUL TO D/C HOME TODAY. FALL RISK ASSESSED AND PT IS NOT A FALL RISK. PT HAS ON NONSLIP SHOES. CALL LIGHT WITHIN REACH. WILL CONT TO FOLLOW POC
--- NOTE | 2019-09-04 07:59 | NUR ---
PT LEFT FOR CT
--- NOTE | 2019-09-04 08:12 | NUR ---
PT RETURNED FROM CT
[2019-09-04 11:17] VITALS: BP 141/78
--- NOTE | 2019-09-04 12:00 | NUR ---
PT SITTING ON SIDE OF BED EATING LUNCH. VSS AND WNL. FAMILY AT BEDSIDE, CALL LIGHT WITHIN REACH, DENIES ANY NEEDS AT THIS TIME, WILL CONT TO FOLLOW POC
--- NOTE | 2019-09-04 12:14 | NUR ---
PIV TO LEFT HAND INFILTRATED. PIV REMOVED WITH CATHETER TIP INTACT. PAGED AND NEW ORDER GIVEN TO D/C IV SOLU-MEDROL AND GIVE PO PREDNISONE AND CHANGE AZITHROMYCIN TO PO.
--- NOTE | 2019-09-04 15:13 | MORECARE ---
CASE MANAGEMENT DISCHARGE SUMMARY PATIENT: HANY BRIAN UNIT: [id number] ADM DATE: 08/31/19 AGE: 59 : 60 SEX: F ROOM/BED: D.1204 AUTHOR: BENEDICT,DOC PHYSICIAN: REFERRING PHYSICIAN: VIC SOTO MD DATE OF SERVICE: 09/04/19 Discharge Plan Patient Name: HANY BRIAN Facility: [facility]:[place] : 1960 Planned Disposition: Home or Self Care Anticipated Discharge Date: Discharge Date: Expected LOS: Initial Reviewer: [email or web address] Initial Review Date: 09/04/2019 Generated: 09/04/19 4:12 pm Comments DCP- Discharge Planning Updated by [email or web address]: Constanza Dias on 09/04/19 2:[address] Patient Name: HANY BRIAN Admission Status: Elective Accout number: [id number] Admission Date: 08-31-2019 : 1960 Admission Diagnosis: Attending: VIC SOTO Current LOS: 4 Anticipated DC Date: Planned Disposition: Home or Self Care Primary Insurance: [employer] OUT OF STATE Discharge Planning Comments: CM met with patient to complete initial dc planning assessment. CM educated patient on the CM role and verbal consent given by patient to complete assessment. Patient lives at home with family where she is independent with her care. At discharge patient plans to return home and feels this is a safe discharge. CM discussed availability of home health, rehab services, and medical equipment. Family will drive her home. Patient has a nebulizer @ home. Patient denied known discharge needs at this time. CM will continue to follow and will assist as needed with dc plans/needs. Skin Care Instructor: Constanza Dias DCPIA - Discharge Planning Initial Assessment Updated by [id number]: Constanza Dias on 09/04/19 3:03 pm * Is the patient Alert and Oriented? Yes * How many steps to enter\exit or inside your home? * PCP JESSENIA * [facility] * Preadmission Environment Home with Family * ADLs Independent * Equipment Nebulizer * List name and contact numbers for known caregivers / representatives who currently or will assist patient after discharge: AMEYA BARRERA - [employer]NER - [phone] * Verbal permission to speak to the caregivers and representatives has been obtained from the patient. Yes * Community resources currently utilized None * Additional services required to return to the preadmission environment? No * Can the patient safely return to the preadmission environment? Yes * Has this patient been hospitalized within the prior 30 days at any hospital? No Patient Name: HANY BRIAN Page [id number] at 1513 All edits/amendments must be made on the electronic document DICTATION DATE: 09/04/191511 ETHNOARCHAEOLOGY PROFESSOR: LEO 09/04/191511 RPT#: [id number] DC DATE: STATUS: ADM IN [facility] [address] [place] [address] END OF REPORT
[2019-09-04 16:02] VITALS: BP 137/79
--- NOTE | 2019-09-04 18:30 | NUR ---
PATIENT RESTING WITH NO NEEDS VOICED, CL IN REACH
--- NOTE | 2019-09-04 19:20 | NUR ---
PT SITTING UP IN BED WITHOUT DISTRESS, AOX4. DENIES NEEDS AT THIS TIME. CL IN REACH, BED LOWEST POSITION, SRX2. WILL CTM
[2019-09-04 19:27] VITALS: BP 129/71
--- NOTE | 2019-09-04 21:00 | NUR ---
ADMINISTERED MEDS ORDERED. DENIES OTHERS NEEDS AT THIS TIME. CL IN REACH, WILL CTM
[2019-09-04 23:49] VITALS: BP 122/59
[2019-09-05 05:00] VITALS: BP 154/73
[2019-09-05 05:56] LABS: BASOPHILS 0.1 % (0-2); EOSINOPHILS 0 % (0-7); HEMATOCRIT 35.6 % (36.0-48.0); HEMOGLOBIN 11.6 g/dL (12-16); IMMATURE GRANULOCYTES 1.6 % (0-5); LYMPHOCYTES 11.1 % (15-50); MCH 31.2 pg (26.0-34.0); MCHC 32.6 g/dL (31.0-37.0); MCV 95.7 fL (80.0-100.0); MEAN PLATELET VOLUME 9.2 fL (7.4-10.4); MONOCYTES 5.5 % (2-11); NEUTROPHILS 81.7 % (40-80); PLATELET COUNT 263 10x3/uL (130-400); RBC 3.72 10x6/uL (4.00-5.40); RDW 15.2 % (11.5-14.5); WBC 12.8 10x3/uL (4.8-10.8)
[2019-09-05 06:14] LABS: CALCIUM 8.1 mg/dL (8.5-10.1); CARBON DIOXIDE 25.2 mmol/L (21.0-32.0); CHLORIDE - SERUM 108 mmol/L (98-107); GLUCOSE 133 mg/dL (74-106); POTASSIUM - SERUM 3.7 mmol/L (3.5-5.1); SODIUM 142 mmol/L (136-145); eGFR NON AFRICAN AMERICAN 78 mL/min (90-120)
[2019-09-05 06:15] LABS: CALC OSMOLALITY 288 mosm/kg (275-300); CREATININE - SERUM 0.8 mg/dL (0.6-1.3); UREA NITROGEN 25 mg/dL (7-18)
[2019-09-05 07:27] VITALS: BP 152/84
--- NOTE | 2019-09-05 07:58 | NUR ---
PATIENT RECIEVED RESTING IN BED WITH NO NEEDS VOICED. EXPIRATORY WHEEZES NOTED RESPIRATIONS NON-LABORED AT REST OR EXERTION. PATIENT AMBULATING FREQUENTLY IN HALLWAYS. NO IV ACCESS, ALL MEDICATIONS PO. CL IN REACH
[2019-09-05] MEDS ORDERED: STERAPRED DS 1210 MG PO (11:32)
[2019-09-05] MEDS ORDERED: ZITHROMAX250 MG PO (11:34)
[2019-09-05] MEDS ORDERED: IPRAT-ALBUT 0.5-3 ML UPD (11:39)
[2019-09-05] MEDS ORDERED: PULMICORT0.5 MG/21 INH (11:40)
--- NOTE | 2019-09-05 12:08 | NUR ---
PAGE INTO DR LEVINE TO SEE ABOUT FINALLY DISCHARGE. AWAITING CALL BACK.
--- NOTE | 2019-09-05 12:12 | NUR ---
DR LEVINE TO CALL BACK WITH NEW ORDERS. PATIENT TO REFUSE FLU SHOT WHEN OFFERED.
--- NOTE | 2019-09-05 12:50 | NUR ---
DISCHARGE INSTRUCTIONS GIVEN TO PATIENT WITH UNDERSTANDING VOICED. PATIENT EDUCATED ON MEDICATIONS AND TO COMPLETE ANTIBIOTICS AT HOME. PATIENT WILL GO BY WHEELCHAIR WHEN FAMILY ARRIVES.
--- NOTE | 2019-09-05 16:17 | MORECARE ---
CASE MANAGEMENT DISCHARGE SUMMARY PATIENT: HANY BRIAN UNIT: [id number] ADM DATE: 08/31/19 AGE: 59 : 60 SEX: F ROOM/BED: D.1204 AUTHOR: BENEDICT,DOC PHYSICIAN: REFERRING PHYSICIAN: VIC SOTO MD DATE OF SERVICE: 09/05/19 Discharge Plan Patient Name: HANY BRIAN Facility: [facility]:[place] : 1960 Planned Disposition: Home or Self Care Anticipated Discharge Date: Discharge Date: 09/05/2019 Expected LOS: Initial Reviewer: [email or web address] Initial Review Date: 09/04/2019 Generated: 09/05/19 5:16 pm DCP- Discharge Planning Updated by [email or web address]: Constanza Dias on 09/04/19 2:[address] Patient Name: HANY BRIAN Admission Status: Elective Accout number: [id number] Admission Date: 08-31-2019 : 1960 Admission Diagnosis: Attending: VIC SOTO Current LOS: 4 Anticipated DC Date: Planned Disposition: Home or Self Care Primary Insurance: [employer] OUT OF STATE Discharge Planning Comments: CM met with patient to complete initial dc planning assessment. CM educated patient on the CM role and verbal consent given by patient to complete assessment. Patient lives at home with family where she is independent with her care. At discharge patient plans to return home and feels this is a safe discharge. CM discussed availability of home health, rehab services, and medical equipment. Family will drive her home. Patient has a nebulizer @ home. Patient denied known discharge needs at this time. CM will continue to follow and will assist as needed with dc plans/needs. Nursing Professor: Constanza Dias DCPIA - Discharge Planning Initial Assessment Updated by [email or web address]: Constanza Dias on 09/04/19 3:03 pm * Is the patient Alert and Oriented? Yes * How many steps to enter\exit or inside your home? * PCP JESSENIA * Pharmacy [facility] / [facility] * Preadmission Environment Home with Family * ADLs Independent * Equipment Nebulizer * List name and contact numbers for known caregivers / representatives who currently or will assist patient after discharge: AMEYA BARRERA - [employer] - [phone] * Verbal permission to speak to the caregivers and representatives has been obtained from the patient. Yes * Community resources currently utilized None * Additional services required to return to the preadmission environment? No * Can the patient safely return to the preadmission environment? Yes * Has this patient been hospitalized within the prior 30 days at any hospital? No Last DP export: 09/04/19 2:13 p Patient Name: HANY BRIAN Page [phone] at 1617 All edits/amendments must be made on the electronic document DICTATION DATE: 09/05/191616 MARSHMALLOW RUNNER: LEO 09/05/191616 RPT#: [id number] DC DATE:09/05/19 STATUS: DIS IN [facility] [address] [place] [address] END OF REPORT
== END 2019-09-05 13:13 | disposition home or self-care (01) | DRG 202 ==
LOC: D.RAD 08:42 → D.M3 11:03
PROVIDERS: ADMIT Internal Medicine Nephrology; ATTEND Internal Medicine Nephrology
DX: J20.9 Acute bronchitis, unspecified (principal); J44.0 Chronic obstructive pulmonary disease with (acute) lower respiratory infection; J98.11 Atelectasis; J44.1 Chronic obstructive pulmonary disease with (acute) exacerbation; E78.5 Hyperlipidemia, unspecified; E03.9 Hypothyroidism, unspecified; K21.9 Gastro-esophageal reflux disease without esophagitis; G89.29 Other chronic pain; M54.9 Dorsalgia, unspecified; K81.9 Cholecystitis, unspecified; Z87.891 Personal history of nicotine dependence

== ENCOUNTER → 2019-11-28 12:50 | Outpatient (CLI) | payer BC ==
[2019-08-31 12:38] VITALS: BMI 30.4
[~2019-11-28 12:50] MED LIST changes: +IPRAT-ALBUT 0.5-3 ML UPD; +PULMICORT0.5 MG/21 INH; +STERAPRED DS 1210 MG PO; +ZITHROMAX250 MG PO
== END | disposition home or self-care (01) ==
LOC: D.RT 12:50
PROVIDERS: ATTEND Internal Medicine Pulmonary Disease
DX: J44.9 Chronic obstructive pulmonary disease, unspecified (principal)

== ENCOUNTER → 2020-04-25 16:02 | Outpatient (CLI) | payer BC ==
[2019-08-31 12:38] VITALS: BMI 30.4
== END | disposition home or self-care (01) ==
LOC: D.CT 04-24 16:30
PROVIDERS: ATTEND Internal Medicine Pulmonary Disease
DX: R91.1 Solitary pulmonary nodule (principal)